=== PATIENT | female | born 1990 | race Caucasian/White ===

== ENCOUNTER 2017-03-25 15:22 | Inpatient (IN) | payer BC ==
--- NOTE | 2017-03-25 06:36 | PCM.LDHP ---
L&D History of Present Illness - General Date of Service: 03/25/17 Admit Problem/Dx: Admission Diagnosis/Problem Admission Diagnosis/Problem 03/25/17 06:27 40-1/7 week intrauterine , elective induction of labor Source of Information: Patient History Limitations: Reports: No Limitations - History of Present Illness Introduction:: Sarai is a 26-year-old 2 para 1001 white female is admitted for elective induction of labor on 03/25/2017. Her MARY is 03/24/2017 is based upon a certain lastwhich started on 06/17/2016 and is supported by 2 ultrasounds. First one done on 08/27/2016 at 9 weeks gestational age and the second one done on 11/04/2016. She is admitted for elective Pitocin/artificial rupture membranes induction. The procedure, risks, benefits, course of labor are discussed in detail the patient. She is interested in an epidural in labor. 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 Certain last menstrual start 06/17/2016. Her cycles are regular. They occur daily 28 days. Using no control at time conception. Menarche age 12. Patient's previous obstetric history includes a male born 02/05/2015 at 40-1/7 weeks gestational age after 12 hours of labor. Baby weighed 6 lbs. 14 oz. was delivered by spontaneous vaginal delivery. His name is Mando Kendall. course was relatively unremarkable. Her first visit occurred on 08/27/2016 at 10-1/7 weeks gestational age. Her weight gain was from 228 230 pounds. Vital signs are stable throughout the course. Fundal height growth was appropriate. Patient has had some asthma exacerbations during the . She declined genetic evaluation. Her [place] depression screening score on 10/21/2016 was 0. She is group B strep negative. 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 laboratory testing shows blood to be O+. Negative and by screen. Hemoglobin done on first visit was 14.0 g/dL. Platelets were 235,000. Her rubella titer shows immunity. RPR is nonreactive. Urine culture was unremarkable. Hepatitis B test was negative. Chlamydia and gonorrhea assays were both negative. Second trimester testing showed hemoglobin 13.6. Her platelets 197,000. Her 1 hour glucose times test was normal at 118. The strep screen is negative. Allergies: penicillin which causes hives and night sweats which causes anaphylaxis. Medications: 1. Montelukast sodium 10 mg orally daily 2. Flovent inhaler 2 puffs twice daily 3. Pro-air inhalation aerosol solution 2 puffs 4 times per day when necessary 4. vitamins daily 5. Colace 100 mg's twice a day when necessary for constipation Past medical history: Normal 70s vaginal delivery 2014 2. Asthma on medications 3. Eczema 4. 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 [place] teeth extraction 2009 2. Back surgery 2013 3. Tonsillectomy 2008 Family history: mother is alive and well. Father has hypertension. One brother is alive and well. Maternal grandmother mother with heart valve disease. Maternal grandfather with dementia and hypertension. Paternal grandfather secondary to pancreatic cancer. Paternal grandmother alive and well. No Precis, blood clotting, bleeding or anesthesia problems noted in the family. Social history: Patient is . is Riley Sewell. 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 She does not use any significant amounts alcohol, drugs or tobacco. They live in [place], [place] Review of systems: In general patient is doing well. Precis symptoms noted Skin: Negative Cardiovascular: No chest pain or exercise intolerance Respiratory: Asthma with exacerbation during on meds Breasts: Changes associated with GI: Negative : Changes associated with [place] skeletal: Negative Neurological: Negative Physical exam: In general patient is well developed, well-nourished, pleasant female stated age in no acute distress. Last evaluation clinic blood pressure was 115/58 on 03/15/2017. Weight was 230. Height growth was normal at 38. heart rate was 135. Skin is warm and dry without lesions. Lungs are clear with good breath sounds, but occasional wheezing in some lung [place]. Cardiovascular exam shows regular rate and rhythm. Breasts: Deferred having been done at first visit and normal. Abdomen: Fundal height 38 cm, baby vertex presentation. Paracervix: 2 cm/80% effaced/very soft/-3/midposition Extremities and neurological exam grossly within normal limits. - Related Data Allergies/Adverse Reactions: Allergies Allergy/AdvReac Type Severity Reaction Status Date / Time tree nut Allergy Severe Anaphylactic Verified 02/05/15 08:22 Shock amoxicillin [Amoxicillin] Allergy Hives Verified 08/18/15 08:22 Penicillins Allergy Hives Verified 02/05/15 08:22 Home Medications: Home Meds Albuterol [Ventolin HFA] 2 puff INH BID PRN 05/07/14 [History] Acyclovir [Zovirax] 800 mg PO 5XDAY 02/05/15 [History] Fluticasone Propionate [Flovent HFA 110 MCG] 1 - 2 inhaler INH ASDIRECTED [History] Montelukast [Singulair] 10 mg PO BEDTIME 02/05/15 [History] Vit No.130/Iron/FA [ Tablet] 1 tab PO DAILY 02/05/15 [History] Benzocaine/Menthol [Dermoplast Pain Relief [place]] 1 applic TOP ASDIRECTED PRN # 30 canister 02/07/15 [Rx] Docusate Sodium [Colace] 100 mg PO BID PRN #20 cap 02/07/15 [Rx] Ibuprofen [Motrin] 600 mg PO Q4H PRN #30 tablet 02/07/15 [Rx] Lanolin [Lansinoh HPA] 1 applic TOP ASDIRECTED PRN #30 crm 02/07/15 [Rx] Ermelinda Tiradoel [Tucks] 1 pad TOP ASDIRECTED PRN #30 pad 02/07/15 [Rx] Past Medical History - Past Surgical History Other Neurological Surgeries/Procedures: Pt states she had lower back surgery to "burn the nerves off her SI joint" in 2012 Social & Family History - Tobacco Use Smoking Status *Q: Never Smoker Second Hand Smoke Exposure: No - Alcohol Use Days Per Week of Alcohol Use: 0 - Recreational Drug Use Recreational Drug Use: No H&P Review of Systems - Review of Systems: Review Of Systems: See Below L&D Exam - Exam Exam: See Below - Vital Signs Weight: 98.43 kg Problem List Initiated/Reviewed/Updated: Yes Assessment/Plan Comment:: Assessment: 1. 40-1/7 week intrauterine , admitted for elective induction of labor 2. Group B strep screen negative 3. Patient plans to breast-feed 4. Patient desire an epidural in labor and delivery 5. Rh+ Plan: 1. Pitocin/artificial rupture membranes induction 2. Routine electronic monitoring 3. Epidural when necessary 4. Encouraged breast-feeding 5. Routine labor and delivery care.
[2017-03-26] MEDS ORDERED: Nalbuphine 20 MG/1 ML Amp IVPUSH PRN (06:54)
[2017-03-26] MEDS ORDERED: Sodium Chloride 0.9% 10 ML Syringe FLUSH PRN (06:54)
[2017-03-26] MEDS ORDERED: Ondansetron 4 MG/2 ML SDV IVPUSH PRN (06:54)
[2017-03-26] MEDS ORDERED: Lidocaine 1% 50 ML MDV INJECT ONE (06:54)
[2017-03-26] MEDS ORDERED: Oxytocin/Lactated Ringers 10 UNIT/1,000 ML BAG IV SCH ×2 (07:00)
[2017-03-26] MEDS ORDERED: ePHEDrine 50 MG/ML SDV IVPUSH PRN (07:29)
[2017-03-26] MEDS ORDERED: diphenhydrAMINE 50 MG/ML SDV IVPUSH PRN (07:29)
[2017-03-26] MEDS ORDERED: Bupivacaine/fentaNYL/NS 100 ML Bag EPIDUR SCH (07:30)
[2017-03-26] MEDS ORDERED: fentaNYL 100 MCG/2 ML SDV EPIDUR ONE (08:00)
[2017-03-26] MEDS: Lactated Ringers 1,000 ML IV SCH ×3 (08:17→12:45)
--- NOTE | 2017-03-26 09:53 | PCM.PREANE ---
Preanesthetic Assessment - Anesthesia/Transfusion/Family Hx Anesthesia History: Prior Anesthesia Without Reaction Family History of Anesthesia Reaction: No Transfusion History: No Prior Transfusion(s) Type of Transfusion Reactions: Reports: Unknown Intubation History: Unknown - Review of Systems General: No Symptoms Pulmonary: No Symptoms (Asthma. Has not used her inhaler for about a month. ) Cardiovascular: No Symptoms Gastrointestinal: No Symptoms Neurological: No Symptoms Other: Reports: None - Physical Assessment O2 Sat by Pulse Oximetry: 98 Respiratory Rate: 18 Vital Signs: Last Vital Signs Temp 36.6 C 03/26/17 07:15 Pulse 71 03/26/17 07:15 Resp 18 03/26/17 07:15 BP 121/70 03/26/17 07:15 Pulse Ox 98 03/26/17 07:15 Height: 1.69 m Weight: 104.78 kg ASA Class: 2 Mental Status: Alert & Oriented x3 Airway Class: Mallampati = 1 Dentition: Reports: Normal Dentition Thyro-Mental Finger Breadths: 3 Mouth Opening Finger Breadths: 3 ROM/Head Extension: Full Lungs: Clear to Auscultation, Normal Respiratory Effort Cardiovascular: Regular Rate, Regular Rhythm - Lab Values: Laboratory Last Values WBC 9.37 K/mm3 (3.98-10.04) 03/26/17 07:25 RBC 4.58 M/mm3 (3.98-5.22) 03/26/17 07:25 Hgb 14.0 gm/L (11.2-15.7) 03/26/17 07:25 Hct 40.9 % (34.1-44.9) 03/26/17 07:25 MCV 89.3 fl (79.4-94.8) 03/26/17 07:25 MCH 30.6 pg (25.6-32.2) 03/26/17 07:25 MCHC 34.2 g/dl (32.2-35.5) 03/26/17 07:25 RDW Std Deviation 43.1 fL (36.4-46.3) 03/26/17 07:25 Plt Count 153 K/mm3 (182-369) L 03/26/17 07:25 MPV 11.8 fl (9.4-12.3) 03/26/17 07:25 Neut % (Auto) 57.6 % (34.0-71.1) 03/26/17 07:25 Lymph % (Auto) 34.2 % (19.3-51.7) 03/26/17 07:25 [place] % (Auto) 5.7 % (4.7-12.5) 03/26/17 07:25 Eos % (Auto) 2.0 (0.7-5.8) 03/26/17 07:25 Baso % (Auto) 0.3 % (0.1-1.2) 03/26/17 07:25 Neut # (Auto) 5.40 K/mm3 (1.56-6.13) 03/26/17 07:25 Lymph # (Auto) 3.20 K/mm3 (1.18-3.74) 03/26/17 07:25 [place] # (Auto) 0.53 K/mm3 (0.24-0.36) H 03/26/17 07:25 Eos # (Auto) 0.19 K/mm3 (0.04-0.36) 03/26/17 07:25 Baso # (Auto) 0.03 K/mm3 (0.01-0.08) 03/26/17 07:25 - Allergies Allergies/Adverse Reactions: Allergies Allergy/AdvReac Type Severity Reaction Status Date / Time tree nut Allergy Severe Anaphylactic Verified 02/05/15 08:22 Shock amoxicillin [Amoxicillin] Allergy Hives Verified 02/05/15 08:22 Penicillins Allergy Hives Verified 02/05/15 08:22 - Acknowledgements Anesthesia Type Planned: Epidural Pt an Appropriate Candidate for the Planned Anesthesia: Yes Alternatives and Risks of Anesthesia Discussed w Pt/Guardian: Yes Pt/Guardian Understands and Agrees with Anesthesia Plan: Yes PreAnesthesia Questionnaire 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 - SUBSTANCE USE Smoking Status *Q: Never Smoker Second Hand Smoke Exposure: No Days Per Week of Alcohol Use: 0 Recreational Drug Use History: No - HOME MEDS Home Medications: Home Meds Albuterol [Ventolin HFA] 2 puff INH BID PRN 05/07/14 [History] Acyclovir [Zovirax] 800 mg PO 5XDAY 02/05/15 [History] Fluticasone Propionate [Flovent HFA 110 MCG] 1 - 2 inhaler INH ASDIRECTED [History] Montelukast [Singulair] 10 mg PO BEDTIME 02/05/15 [History] Vit No.130/Iron/FA [ Tablet] 1 tab PO DAILY 02/05/15 [History] Benzocaine/Menthol [Dermoplast Pain Relief [place]] 1 applic TOP ASDIRECTED PRN # 30 canister 02/07/15 [Rx] Docusate Sodium [Colace] 100 mg PO BID PRN #20 cap 02/07/15 [Rx] Ibuprofen [Motrin] 600 mg PO Q4H PRN #30 tablet 02/07/15 [Rx] Lanolin [Lansinoh HPA] 1 applic TOP ASDIRECTED PRN #30 crm 02/07/15 [Rx] Witch Domitila [Tucks] 1 pad TOP ASDIRECTED PRN #30 pad 02/07/15 [Rx] - CURRENT (IN HOUSE) MEDS Current Meds: Current Medications Diphenhydramine HCl (Benadryl) 25 mg IVPUSH Q6H PRN PRN Reason: Pruritis Ephedrine Sulfate (Ephedrine Sulfate) 5 mg IVPUSH ASDIRECTED PRN PRN Reason: Hypotension Fentanyl/Bupivacaine HCl (Fentanyl/Bupivacaine/Ns 2 Mcg-0.125% 100 Ml) 100 ml EPIDUR ASDIRECTED SARATH Lactated Ringer's (Ringers, Lactated) 1,000 mls @ 100 mls/hr IV ASDIRECTED SARATH Last Admin: 03/26/17 08:17 Dose: 100 mls/hr Oxytocin/Lactated Ringer's (Pitocin In Lr 10 Units/1,000 Ml) 10 unit in 1,000 mls @ 12 mls/hr IV TITRATE SARATH; 2 MUNITS/MIN PRN Reason: Protocol Last Admin: 03/26/17 08:16 Dose: 2 munits/min, 12 mls/hr Oxytocin/Lactated Ringer's (Pitocin In Lr 10 Units/1,000 Ml) 10 unit in 1,000 mls @ 100 mls/hr IV .CONTINUOUS SARATH Nalbuphine HCl (Nubain) 10 mg IVPUSH Q2H PRN PRN Reason: Pain (moderate 4-6) Ondansetron HCl (Zofran) 4 mg IVPUSH Q4H PRN PRN Reason: Nausea/Vomiting Sodium Chloride (Saline Flush) 10 ml FLUSH ASDIRECTED PRN PRN Reason: Keep Vein Open Discontinued Medications Fentanyl (Sublimaze) 100 mcg EPIDUR ONETIME ONE Stop: 03/26/17 08:01 Lidocaine HCl (Xylocaine 1%) 10 ml INJECT ONETIME ONE Stop: 03/26/17 06:55
[2017-03-26] MEDS ORDERED: fentaNYL 100 MCG/2 ML SDV ONE (11:26)
--- NOTE | 2017-03-26 16:33 | PCM.SN ---
- Free Text/Narrative Note: Delivery note: Sarai is a 26 year old 2 now para 2002 white female who was admitted on 03/26/2017 at 40-2/7 weeks gestational age with an MARY of 03/24/2017 for elective induction of labor. The patient was 2 cm, 80% effaced, very soft, posterior, -3 upon admission. She is administered Pitocin initially and then had artificial rupture membranes at approximately late morning. She progressed to complete cervical dilation by approximately 1600 hrs. She pushed approximately 15 minutes at which time she delivered a viable, [place], 7 pound 4.4 ounces (3300 g) male infant with a length of 20 inches, Apgars of 8 and 9 in a left occiput anterior position. Baby was placed on mom's abdomen. The cord was clamped 2 and and then was cut by the father. Cord blood was obtained. The patient was administered Pitocin IV after delivery of the baby to facilitate uterine contractions and decreased likelihood of bleeding. Umbilical cord had 3 vessels, delivered in a spontaneous fashion, [place] presentation. It appeared intact and complete. It was discarded per patient desire. Patient had a first-degree laceration and this was repaired with 2 interrupted sutures of 3-0 Monocryl. Estimated blood loss was 100 mL. Patient is nursing the baby. Condition: Good
[2017-03-26] MEDS ORDERED: Benzocaine/Menthol 20%-0.5% Spray 56 GM Canister TOP PRN (17:38)
[2017-03-26] MEDS ORDERED: Witch Hazel Medicated Pads 100/Jar TOP PRN (17:38)
[2017-03-26] MEDS ORDERED: Lanolin 100% Cream 7 GM Tube TOP PRN (17:38)
[2017-03-26] MEDS ORDERED: Acetaminophen 325 MG Tab PO PRN (17:38)
[2017-03-27] MEDS: Ibuprofen 600 MG Tab PO PRN ×2 (06:05→12:28)
--- NOTE | 2017-03-27 07:12 | PCM.PNPP ---
- General Info Date of Service: 03/27/17 Functional Status: Reports: Pain Controlled, Tolerating Diet, Ambulating, Urinating - Review of Systems General: Reports: No Symptoms Pulmonary: Reports: No Symptoms Cardiovascular: Reports: No Symptoms Gastrointestinal: Reports: No Symptoms Genitourinary: Reports: No Symptoms Musculoskeletal: Reports: No Symptoms - Patient Data Vital Signs - Most Recent: Last Vital Signs Temp 36.6 C 03/27/17 06:08 Pulse 76 03/27/17 06:08 Resp 14 03/27/17 06:08 BP 114/64 03/27/17 06:08 Pulse Ox 96 03/27/17 06:08 Weight - Most Recent: 104.78 kg Lab Results - Last 24 Hours: Laboratory Results - last 24 hr 03/26/17 Range/Units 07:25 WBC 9.37 (3.98-10.04) K/mm3 RBC 4.58 (3.98-5.22) M/mm3 Hgb 14.0 (11.2-15.7) gm/L Hct 40.9 (34.1-44.9) % MCV 89.3 (79.4-94.8) fl MCH 30.6 (25.6-32.2) pg MCHC 34.2 (32.2-35.5) g/dl RDW Std Deviation 43.1 (36.4-46.3) fL Plt Count 153 L (182-369) K/mm3 MPV 11.8 (9.4-12.3) fl Neut % (Auto) 57.6 (34.0-71.1) % Lymph % (Auto) 34.2 (19.3-51.7) % [place] % (Auto) 5.7 (4.7-12.5) % Eos % (Auto) 2.0 (0.7-5.8) Baso % (Auto) 0.3 (0.1-1.2) % Neut # (Auto) 5.40 (1.56-6.13) K/mm3 Lymph # (Auto) 3.20 (1.18-3.74) K/mm3 [place] # (Auto) 0.53 H (0.24-0.36) K/mm3 Eos # (Auto) 0.19 (0.04-0.36) K/mm3 Baso # (Auto) 0.03 (0.01-0.08) K/mm3 Med Orders - Current: Current Medications Acetaminophen (Tylenol) 650 mg PO Q4H PRN PRN Reason: mild pain or fever Benzocaine/Menthol (Dermoplast Pain Relief [place]) 0 gm TOP ASDIRECTED PRN PRN Reason: Perineal Comfort Measure Last Admin: 03/26/17 18:30 Dose: 1 canister Emollient Ointment (Lansinoh Hpa) 0 gm TOP ASDIRECTED PRN PRN Reason: Sore Nipples Last Admin: 03/27/17 06:06 Dose: 1 tube Ibuprofen (Motrin) 600 mg PO Q4H PRN PRN Reason: Mild pain or fever Last Admin: 03/27/17 06:05 Dose: 600 mg Prenat Multivit/Clinical Informatics Manager/Iron/Folic Ac ( Plus Iron) 1 each PO DAILY SARATH Witch Domitila (Tucks) 1 pad TOP ASDIRECTED PRN PRN Reason: Hemorrhoid pain Last Admin: 03/26/17 18:30 Dose: 1 container Discontinued Medications Diphenhydramine HCl (Benadryl) 25 mg IVPUSH Q6H PRN PRN Reason: Pruritis Ephedrine Sulfate (Ephedrine Sulfate) 5 mg IVPUSH ASDIRECTED PRN PRN Reason: Hypotension Fentanyl (Sublimaze) 100 mcg EPIDUR ONETIME ONE Stop: 03/26/17 08:01 Last Admin: 03/26/17 11:54 Dose: 100 mcg Fentanyl (Sublimaze) Confirm Administered Dose 100 mcg .ROUTE .STK-MED ONE Stop: 03/26/17 11:27 Last Admin: 03/26/17 21:36 Dose: Not Given Fentanyl/Bupivacaine HCl (Fentanyl/Bupivacaine/Ns 2 Mcg-0.125% 100 Ml) 100 ml EPIDUR ASDIRECTED SARATH Last Admin: 03/26/17 11:54 Dose: 100 ml Lactated Ringer's (Ringers, Lactated) 1,000 mls @ 100 mls/hr IV ASDIRECTED SARATH Last Admin: 03/26/17 12:45 Dose: 100 mls/hr Oxytocin/Lactated Ringer's (Pitocin In Lr 10 Units/1,000 Ml) 10 unit in 1,000 mls @ 12 mls/hr IV TITRATE SARATH; 2 MUNITS/MIN PRN Reason: Protocol Last Titration: 03/26/17 10:30 Dose: 12 munits/min, 72 mls/hr Oxytocin/Lactated Ringer's (Pitocin In Lr 10 Units/1,000 Ml) 10 unit in 1,000 mls @ 100 mls/hr IV .CONTINUOUS SARATH Lidocaine HCl (Xylocaine 1%) 10 ml INJECT ONETIME ONE Stop: 03/26/17 06:55 Last Admin: 03/26/17 21:33 Dose: Not Given Nalbuphine HCl (Nubain) 10 mg IVPUSH Q2H PRN PRN Reason: Pain (moderate 4-6) Ondansetron HCl (Zofran) 4 mg IVPUSH Q4H PRN PRN Reason: Nausea/Vomiting Sodium Chloride (Saline Flush) 10 ml FLUSH ASDIRECTED PRN PRN Reason: Keep Vein Open - Interaction Infant Disposition, : in Room with Family Interaction: Holding Infant Infant Feeding: Breastfed Infant; Nursed Well Support Person: - Recovery Exam Fundal Tone: Firm Fundal Level: At Umbilicus Fundal Placement: Midline Lochia Amount: Small, Moderate Lochia Color: Rubra/Red Perineum Description: Intact, Minimal Bruising/Swelling Episiotomy/Laceration: Approximated Bladder Status: Voiding - Exam General: Alert, Oriented, Cooperative GI/Abdominal Exam: Soft, Non-Tender Extremities: Normal Inspection Skin: Warm, Dry, Intact - Problem List & Annotations (1) 40 weeks gestation of SNOMED Code(s): 37584941 Code(s): Z3A.40 - 40 WEEKS GESTATION OF Status: Acute Current Visit: Yes (2) Vaginal delivery SNOMED Code(s): 521434692 Code(s): O80 - ENCOUNTER FOR FULL-TERM UNCOMPLICATED DELIVERY Status: Acute Current Visit: Yes - Problem List Review Problem List Initiated/Reviewed/Updated: Yes - My Orders Last 24 Hours: My Active Orders 03/27/17 07:11 Ready for Discharge [RC] PER UNIT ROUTINE - Assessment Assessment:: 26 y/o G2 now P2002 PPD#1 from at 40 1/7 wks - Plan Plan:: * Routine cares * Encourage breast feeding * Discharge home today vs tomorrow depending upon patient preference
[2017-03-27] MEDS ORDERED: Prenatal Multivitamin with Calcium/Folic Acid/Iron Tab PO SCH (09:00)
[2017-03-27] MEDS ORDERED: Montelukast 10 MG Tab PO SCH (09:45)
[2017-03-27 13:25] VITALS: BP 117/70
--- NOTE | 2017-03-28 13:41 | PCM48HPAN ---
Post Anesthesia Note - EVALUATION WITHIN 48HRS OF ANESTHETIC Vital Signs in Normal Range: Yes Patient Participated in Evaluation: Yes Respiratory Function Stable: Yes Airway Patent: Yes Cardiovascular Function Stable: Yes Hydration Status Stable: Yes Pain Control Satisfactory: Yes Nausea and Vomiting Control Satisfactory: Yes Mental Status Recovered: Yes - COMMENTS/OBSERVATIONS Free Text/Narrative:: Patient discharged home. Chart reviewed and spoke with nursing staff. No apparent complications noted related to epidural placement.
== END 2017-03-27 17:20 | disposition home or self-care (01) | DRG 560 ==
LOC: JD.OB 03-26 06:50 → OBSVTOIN 03-26 16:26
PROVIDERS: ADMIT Obstetrics & Gynecology; ATTEND Obstetrics & Gynecology
PROC: 10E0XZZ Delivery of Products of Conception, External Approach (ICD-10-PCS; principal; 2017-03-26)
PROC: 3E033VJ Introduction of Other Hormone into Peripheral Vein, Percutaneous Approach (ICD-10-PCS; 2017-03-26)
PROC: 10907ZC Drainage of Amniotic Fluid, Therapeutic from Products of Conception, Via Natural or Artificial Opening (ICD-10-PCS; 2017-03-26)
PROC: 0HQ9XZZ Repair Perineum Skin, External Approach (ICD-10-PCS; 2017-03-26)
PROC: 00HU33Z Insertion of Infusion Device into Spinal Canal, Percutaneous Approach (ICD-10-PCS; 2017-03-26)
PROC: 3E0R3BZ Introduction of Anesthetic Agent into Spinal Canal, Percutaneous Approach (ICD-10-PCS; 2017-03-26)
DX: O70.0 First degree perineal laceration during delivery (principal); Z3A.40 40 weeks gestation of pregnancy; Z37.0 Single live birth
CPT/HCPCS: 36415; 59409; 85025; 85027; A9270-GY; J2590; J3010; J7120

== ENCOUNTER 2019-10-14 01:27 | Inpatient (IN) | payer OTHER ==
--- NOTE | 2019-10-14 11:01 | PCM.LDHP ---
L&D History of Present Illness - General Date of Service: 10/14/19 Admit Problem/Dx: Admission Diagnosis/Problem Admission Diagnosis/Problem 10/14/19 10:47 Sarai is a 29-year-old 3 para 2002 white female who is presently at 39 -2/7 weeks gestational age with an MARY of 10/19/2019 who was admitted for elective induction of labor for the reason of Her status and increased distance from the hospital. Source of Information: Patient History Limitations: Reports: No Limitations - History of Present Illness Introduction:: Sarai is a 29-year-old 3 para 2002 white female who is presently at 39 -2/7 weeks gestational age with an MARY of 10/19/2019 who was admitted for elective induction of labor for the reason of multiparous status and increased distance from the hospital. The procedure of induction of labor, its risks, benefits and alternatives of care including allowing for natural onset of labor are all discussed with patient and her . She appears to understand, wishes to proceed and has given verbal consent. 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 Patient has a relatively unremarkable obstetric history. She had normal menarche at approximately age 13. Her cycles come on a regular basis. She was not using any control at the time of conception. Her LMP was certain starting on 01/12/2019. Her past obstetric history includes the followin. Male born 02/05/2015 at 40-1/7 weeks gestational age after 12 hours of labor. 6 lbs. 14 oz. born via normal . Patient had an epidural with that labor. Baby was born at [facility]. Child's name is Joe Kendall. 2. Male born 03/26/2017 at 40-2/7 weeks gestational age. 7 lbs. 4 oz. born via 3-D with epidural for analgesia at [facility] in [place]. Child's name is Severiano course: Patient was seen initially early in the at 10-4/7 weeks gestational age ultrasound at that time confirmed dates. She was seen on a very regular basis. Her weight relatively constant with an actual loss of weight of from 224 to 220 pounds. Fundal height growth was appropriate. Her vital signs remained stable throughout the course. Patient desires an epidural in labor and delivery. Her group B strep screen is negative. She has had some asthma which has been stable during the course the . Her [place] depression screen done on 05/24/2019 was a score is 0/30. She had her flu shot on 04/14/2019. She plans to breast-feed. Tdap immunization on 08/14/2019. She is rubella immune. Her HPV vaccinations given 2007. Hepatitis B immunization given in 2003. Meningococcal immunization given in 2006. Laboratory testing and shows her blood to be O+ with negative and by screen. First hemoglobin was 14.1 g/dL. Platelets were 197,000. She is rubella immune. Urine culture was negative. Hepatitis B surface antigen and HIV assays were both negative. Gonorrhea and chlamydia tests were both negative. Second trimester hemoglobin was 13.5 g/dL and platelets were 224,000. Her 1 hour GTT was 73. Group B strep screen is negative. RPR done on 07/17/2019 was non -reactive area Allergies: 1. Penicillin which causes hives. 2. Nutswhich cause anaphylaxis. Medications: 1. Montelukast sodium 10 mg by mouth daily 2. HFA inhaler 2 puffs 4 times a day when necessary for asthma 3. Zyrtec 10 mg by mouth daily 4. Flonase suspension when necessary 5. vitamins daily Past medical history: 1. Asthma 2. 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 2. Past surgical history: 1. [place] teeth extraction 2009 2. Back surgery 2013 3. Tonsillectomy 2008 Family history: Mother is alive and well. Father has hypertension. One brother is alive and well. Maternal grandmother is alive but has heart valve disease. Maternal grandfather with dementia and hypertension. Paternal grandfather secondary to pancreatic cancer. Paternal grandmother alive and well. There are no , clotting, bleeding, anesthesia problems noted elsewhere in the family. Social history: Patient is . She now lives in [place]. She is not employed at the present time. She is a college graduate. Her is Riley. She does not use any significant most alcohol, drugs or tobacco. Review of systems: In general patient has no complaints. Skin: Negative Lungs: No infectious symptoms or shortness of breath area. Her asthma has been relatively stable during . Cardiovascular: No chest pain or exercise intolerance Breasts: Changes associated with . Patient plans to breast-feed.. GI: Negative : Body habitus changes associated . Musculoskeletal: Negative Neurological: Negative In general the patient is well-developed, well-nourished, pleasant female of stated age in no acute distress. Reports good activity. Evaluation in clinic on 10/05/2019 her blood pressure is 110/72. Weight was 220 pounds. heart rate was 154. Pre-gravid weight was 224. Height is 5 feet 6 inches. Prepregnancy body mass index was 5.6. Skin is warm dry without lesions. HEENT, neck and back within normal limits. Lungs are clear with good breath sounds in all lung [place]. Cardiovascular exam shows regular and rhythm without murmurs. Breast exam is deferred at this time having been done at first visit and found to be normal it is not repeated at this point. Abdomen is gravid. Last fundal height in clinic was 37 cm with baby in vertex presentation. Genital exam per digital on last evaluation in clinic1-2 cm, 80% effaced, very soft, mid position, -3 station.. Extremities and neurological exam are grossly within normal limits. - Related Data Allergies/Adverse Reactions: Allergies Allergy/AdvReac Type Severity Reaction Status Date / Time tree nut Allergy Severe Anaphylactic Verified 02/05/15 08:22 Shock amoxicillin [Amoxicillin] Allergy Hives Verified 02/05/15 08:22 Penicillins Allergy Hives Verified 02/05/15 08:22 Home Medications: Home Meds Ibuprofen [IJD: Ibuprofen] 600 mg PO Q4H PRN tablet 03/26/17 [Rx] Pnv No.95/Ferrous Fum/Folic AC [ Vitamins Tablet] 1 tab PO DAILY [History] Past Medical History SEISMIC SURVEY ASSISTANT History: Reports: - Past Surgical History Other Neurological Surgeries/Procedures: Pt states she had lower back surgery to "burn the nerves off her SI joint" in 2012 Other Musculoskeletal Surgeries/Procedures:: Pt had previous back surgery. Social & Family History - Family History Family Medical History: Noncontributory H&P Review of Systems - Review of Systems: Review Of Systems: See Below L&D Exam - Exam Exam: See Below Problem List Initiated/Reviewed/Updated: Yes Assessment/Plan Comment:: 1. 39-2/7 week intrauterine admitted for elective induction of labor secondary to multiparous status with increased distance from the pill. 2. Risk factors for the include history of asthma, from hospital. 3. Patient desires epidural in labor and delivery 4. Patient plans to breast-feed 5. Group B strep screen is negative. 6. Patient is rubella immune. RPR is nonreactive. She has received her flu shot and her T dap during the course of the . Plan: 1. Pitocin induction of labor with artificial rupture membranes augmentation at the appropriate time. 2. RPR and CBC upon admission 3. Routine labor care 4. Epidural when necessary per patient desire. 5. Anticipate normal spontaneous vaginal delivery.
[2019-10-14] MEDS ORDERED: Ondansetron 4 MG/2 ML SDV IVPUSH PRN (13:09)
[2019-10-14] MEDS ORDERED: Sodium Chloride 0.9% 10 ML Syringe FLUSH PRN (13:09)
[2019-10-14] MEDS ORDERED: Nalbuphine 10 MG/ML Syringe IVPUSH PRN (13:09)
[2019-10-14] MEDS ORDERED: Oxytocin/Lactated Ringers 10 UNIT/1,000 ML BAG IV SCH ×2 (13:15)
[2019-10-14] MEDS: Lactated Ringers 1,000 ML IV SCH ×4 (13:36→23:56)
[2019-10-14] MEDS ORDERED: fentaNYL 100 MCG/2 ML SDV EPIDUR PRN (13:55)
[2019-10-14] MEDS ORDERED: ePHEDrine 50 MG/ML SDV IVPUSH PRN (13:55)
[2019-10-14] MEDS ORDERED: diphenhydrAMINE 50 MG/ML SDV IVPUSH PRN (13:55)
--- NOTE | 2019-10-14 14:02 | PCM.PREANE ---
Preanesthetic Assessment - Procedure Proposed Procedure: Continuous Labor Epidural - Anesthesia/Transfusion/Family Hx Anesthesia History: Prior Anesthesia Without Reaction Transfusion History: No Prior Transfusion(s) Type of Transfusion Reactions: Reports: Unknown Intubation History: Unknown - Review of Systems General: No Symptoms Pulmonary: No Symptoms Cardiovascular: No Symptoms Gastrointestinal: No Symptoms Neurological: No Symptoms Other: Reports: None - Physical Assessment Height: 1.7 m Weight: 102.512 kg ASA Class: 2 Mental Status: Alert & Oriented x3 Airway Class: Mallampati = 2 Dentition: Reports: Normal Dentition Thyro-Mental Finger Breadths: 3 Mouth Opening Finger Breadths: 3 ROM/Head Extension: Full Lungs: Clear to Auscultation, Normal Respiratory Effort Cardiovascular: Regular Rate, Regular Rhythm - Lab Values: Laboratory Last Values WBC 9.21 K/mm3 (3.98-10.04) 10/14/19 13:23 RBC 4.32 M/mm3 (3.98-5.22) 10/14/19 13:23 Hgb 12.9 gm/dl (11.2-15.7) 10/14/19 13:23 Hct 39.0 % (34.1-44.9) 10/14/19 13:23 MCV 90.3 fl (79.4-94.8) 10/14/19 13:23 MCH 29.9 pg (25.6-32.2) 10/14/19 13:23 MCHC 33.1 g/dl (32.2-35.5) 10/14/19 13:23 RDW Std Deviation 44.4 fL (36.4-46.3) 10/14/19 13:23 Plt Count 179 K/mm3 (182-369) L 10/14/19 13:23 MPV 11.2 fl (9.4-12.3) 10/14/19 13:23 Neut % (Auto) 62.3 % (34.0-71.1) 10/14/19 13:23 Lymph % (Auto) 30.8 % (19.3-51.7) 10/14/19 13:23 [place] % (Auto) 5.9 % (4.7-12.5) 10/14/19 13:23 Eos % (Auto) 0.7 (0.7-5.8) 10/14/19 13:23 Baso % (Auto) 0.2 % (0.1-1.2) 10/14/19 13:23 Neut # (Auto) 5.74 K/mm3 (1.56-6.13) 10/14/19 13:23 Lymph # (Auto) 2.84 K/mm3 (1.18-3.74) 10/14/19 13:23 [place] # (Auto) 0.54 K/mm3 (0.24-0.36) H 10/14/19 13:23 Eos # (Auto) 0.06 K/mm3 (0.04-0.36) 10/14/19 13:23 Baso # (Auto) 0.02 K/mm3 (0.01-0.08) 10/14/19 13:23 - Allergies Allergies/Adverse Reactions: Allergies Allergy/AdvReac Type Severity Reaction Status Date / Time tree nut Allergy Severe Anaphylactic Verified 02/05/15 08:22 Shock amoxicillin [Amoxicillin] Allergy Hives Verified 02/05/15 08:22 Penicillins Allergy Hives Verified 02/05/15 08:22 - Acknowledgements Anesthesia Type Planned: Epidural Pt an Appropriate Candidate for the Planned Anesthesia: Yes Alternatives and Risks of Anesthesia Discussed w Pt/Guardian: Yes Pt/Guardian Understands and Agrees with Anesthesia Plan: Yes PreAnesthesia Questionnaire Respiratory History: Reports: Asthma (uses Singulair) 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 - HOME MEDS Home Medications: Home Meds Ibuprofen [IJD: Ibuprofen] 600 mg PO Q4H PRN tablet 03/26/17 [Rx] Pnv No.95/Ferrous Fum/Folic AC [ Vitamins Tablet] 1 tab PO DAILY [History] - CURRENT (IN HOUSE) MEDS Current Meds: Current Medications Diphenhydramine HCl (Benadryl) 25 mg IVPUSH Q6H PRN PRN Reason: pruritis Ephedrine Sulfate (Ephedrine Sulfate) 5 mg IVPUSH ASDIRECTED PRN PRN Reason: Hypotension Fentanyl (Sublimaze) 100 mcg EPIDUR Q3H PRN PRN Reason: Pain Fentanyl/Bupivacaine HCl (Fentanyl/Bupivacaine/Ns 2 Mcg-0.125% 100 Ml) 100 ml EPIDUR ASDIRECTED PRN PRN Reason: Pain Lactated Ringer's (Ringers, Lactated) 1,000 mls @ 100 mls/hr IV ASDIRECTED [facility] Last Admin: 10/14/19 13:36 Dose: 100 mls/hr Oxytocin/Lactated Ringer's (Pitocin In Lr 10 Units/1,000 Ml) 10 unit in 1,000 mls @ 12 mls/hr IV TITRATE SARATH; Protocol Last Admin: 10/14/19 13:36 Dose: 2 munits/min, 12 mls/hr Oxytocin/Lactated Ringer's (Pitocin In Lr 10 Units/1,000 Ml) 10 unit in 1,000 mls @ 3,000 mls/hr IV ASDIRECTED SARATH; Protocol Nalbuphine HCl (Nubain) 10 mg IVPUSH Q2H PRN PRN Reason: Pain Ondansetron HCl (Zofran) 4 mg IVPUSH Q4H PRN PRN Reason: Nausea/Vomiting Sodium Chloride (Saline Flush) 10 ml FLUSH ASDIRECTED PRN PRN Reason: Keep Vein Open
[2019-10-14] MEDS: Bupivacaine/fentaNYL/NS 100 ML Bag EPIDUR PRN ×2 (16:16→23:55)
[2019-10-15] MEDS ORDERED: Lidocaine 2% with EPINEPHrine 1:200,000 20 ML SDV ONE
[2019-10-15] MEDS ORDERED: Albuterol 6.7 GM Inhaler INH PRN (01:45)
--- NOTE | 2019-10-15 01:52 | PCM.SN.2 ---
- Free Text/Narrative Note: Delivery note: Sarai is a 29-year-old 3 para 2002 white female who is presently at 39 -2/7 weeks gestational age with an MARY of 10/19/2019 who was admitted for elective induction of labor for the reason of multiparous status and increased distance from the hospital. She was started on Pitocin in the early afternoon on 10/14/2019. She made slow but steady progress, and epidural was placed for labor analgesia and at approximately 2030 hrs. artificial rupture membranes was accomplished with resultant clear amniotic fluid. IUPC was placed. Pitocin was modified as necessary. She progressed more rapidly and at approximately 0100 hrs. on 10/15/2019 she became complete and within approximately 25 minutes at 0127 hrs. delivered a viable, [place], male infant with Apgars of 8 and 9, weight of 2850 g (6 pounds 4.5 ounces), a length of 19.5 inches in a direct occiput anterior position over an intact perineum. The baby was placed on mom's abdomen, nose and mouth were bulb suctioned. The baby was dried and repeat routine fashion. The umbilical cord was allowed to pulsate for approximately 2 minutes then was clamped 2 and cut by the baby's dad Riley. The umbilical cord had 3 vessels. Cord blood was obtained. The placenta delivered at 0133 hrs. in a [place] presentation, appeared intact and complete and was discarded per patient desire. A Assessment blood loss was approximately 200 mL. Patient plans to breast-feed.
[2019-10-15] MEDS ORDERED: Benzocaine/Menthol 20%-0.5% Spray 56 GM Canister TOP PRN (01:55)
[2019-10-15] MEDS ORDERED: Witch Hazel Medicated Pads 40/Jar TOP PRN (01:55)
[2019-10-15] MEDS ORDERED: Docusate Sodium 100 MG Cap PO PRN (01:55)
[2019-10-15] MEDS ORDERED: Acetaminophen 325 MG Tab PO PRN (01:55)
[2019-10-15] MEDS: Ibuprofen 600 MG Tab PO PRN ×4 (06:57→21:52)
[2019-10-15] MEDS ORDERED: Montelukast 10 MG Tab PO SCH (09:00)
[2019-10-15] MEDS: Prenatal Multivitamin with Calcium/Folic Acid/Iron Tab PO SCH (13:42)
--- NOTE | 2019-10-15 14:48 | PCM48HPAN ---
Post Anesthesia Note - EVALUATION WITHIN 48HRS OF ANESTHETIC Vital Signs in Normal Range: Yes Patient Participated in Evaluation: Yes Respiratory Function Stable: Yes Airway Patent: Yes Cardiovascular Function Stable: Yes Hydration Status Stable: Yes Pain Control Satisfactory: Yes Nausea and Vomiting Control Satisfactory: Yes Mental Status Recovered: Yes Vital Signs: Last Vital Signs Temp 98.2 F 10/15/19 07:49 Pulse 71 10/15/19 07:49 Resp 14 10/15/19 07:49 BP 104/62 10/15/19 07:49 Pulse Ox 98 10/15/19 07:49 - COMMENTS/OBSERVATIONS Free Text/Narrative:: Patient is on her day 1. Stated understanding about possible backaches following epidural anesthesia. Reports no back soreness at this time. Explanation given about importance of avoiding back straining. Denies any headache or lightheadedness at this time. Comfortable now. Ambulating, no difficulty urinating.
--- NOTE | 2019-10-15 21:04 | PCM.SN.2 ---
- Free Text/Narrative Note: note: Day of delivery-evening Patient is doing well in the period. Minimal lochia, voiding well, ambulated without problems. Nursing without concerns. Patient is afebrile, vital signs are stable Abdomen is flat, soft, patient reports no tenderness. Legs are nontender. Assessment: recovery going well. Plan: Routine care. Patient be discharged home within the next 24- 48 hours.
[2019-10-16] MEDS: Ibuprofen 600 MG Tab PO PRN ×2 (03:45→09:56)
--- NOTE | 2019-10-16 05:04 | PCM.DCSUM1 ---
Discharge Summary - Hospital Course Free Text/Narrative:: Sarai is a 29-year-old 3 para 2002 white female who is presently at 39 -2/7 weeks gestational age with an MARY of 10/19/2019 who was admitted for elective induction of labor for the reason of multiparous status and increased distance from the hospital. She was started on Pitocin in the early afternoon on 10/14/2019. She made slow but steady progress, and epidural was placed for labor analgesia and at approximately 2030 hrs. artificial rupture membranes was accomplished with resultant clear amniotic fluid. IUPC was placed. Pitocin was modified as necessary. She progressed more rapidly and at approximately 0100 hrs. on 10/15/2019 she became complete and within approximately 25 minutes at 0127 hrs. delivered a viable, [place], male with Apgars of 8 and 9, weight of 2850 g (6 pounds 4.5 ounces), a length of 19.5 inches in a direct occiput anterior position over an intact perineum. The baby was placed on mom's abdomen, nose and mouth were bulb suctioned. The baby was dried and repeat routine fashion. The umbilical cord was allowed to pulsate for approximately 2 minutes then was clamped 2 and cut by the baby's dad Riley. The umbilical cord had 3 vessels. Cord blood was obtained. The placenta delivered at 0133 hrs. in a Pinedo presentation, appeared intact and complete and was discarded per patient desire. A Approximately blood loss was approximately 200 mL. patient is doing well. She is ambulating well, breast-feeding without problems. She is voiding without concerns and has minimal lochia. She is desiring discharge home. Diagnosis: Stroke: No - Discharge Data Discharge Date: 10/16/19 Discharge Disposition: Home, Self-Care 01 Condition: Good - Referral to Home Health Primary Care Physician: Dennis Leslie MD - Patient Instructions Diet: Regular Diet as Tolerated (Nursing diet with increased calories and calcium as recommended) Activity: As Tolerated (No intercourse or tampons until bleeding resolves) Driving: May Drive Today Showering/Bathing: May Shower (May take a bath) Notify Provider of: Fever, Increased Pain, Swelling and Redness, Nausea and/or Vomiting - Discharge Plan Home Medications: Home Meds Pnv No.95/Ferrous Fum/Folic AC [ Vitamins Tablet] 1 tab PO DAILY [History] Albuterol [Proair HFA] 2 puff INH Q4HR PRN 10/14/19 [History] Docusate Sodium [Colace] 100 mg PO ASDIRECTED PRN 10/14/19 [History] Montelukast [Singulair] 10 mg PO DAILY 10/14/19 [History] Acetaminophen [Tylenol] 650 mg PO Q4H PRN tablet 10/16/19 [Rx] Ibuprofen [Motrin] 600 mg PO Q4H PRN tablet 10/16/19 [Rx] Referrals: Dennis Leslie MD [Primary Care Provider] - (The patient is to call the clinic for a telehealth appointment to be done in 2 weeks.) - Discharge Summary/Plan Comment DC Time >30 min.: No Discharge Summary/Plan Comment: Discharge instructions: 1. Discharge home 2. Diet, activity and follow-up discussed with patient. Recommend nursing diet with increased calories and calcium. 3. Precautions given concern increased pain, bleeding, temperature, signs/ symptoms of DVT/PE. 4. Medications per home medication was printed, discussed with and given to the patient. 5. The patient is to call for a telehealth appointment which should occur in 2 weeks. Diagnosis: Term -delivered Condition: Good - Patient Data Vitals - Most Recent: Last Vital Signs Temp 36.7 C 10/16/19 03:45 Pulse 72 10/16/19 03:45 Resp 14 10/16/19 03:45 BP 106/64 10/16/19 03:45 Pulse Ox 99 10/16/19 03:45 Weight - Most Recent: 102.512 kg Med Orders - Current: Current Medications Acetaminophen (Tylenol) 650 mg PO Q4H PRN PRN Reason: mild pain or fever Last Admin: 10/15/19 19:12 Dose: 650 mg Benzocaine/Menthol (Dermoplast Pain Relief [place]) 0 gm TOP ASDIRECTED PRN PRN Reason: Perineal Comfort Measure Docusate Sodium (Colace) 100 mg PO BID PRN PRN Reason: Constipation Ibuprofen (Motrin) 600 mg PO Q4H PRN PRN Reason: Mild pain or fever Last Admin: 10/16/19 03:45 Dose: 600 mg Prenat Multivit/[place]/Iron/Folic Ac ( Plus Iron) 1 each PO DAILY [facility] Last Admin: 10/15/19 13:42 Dose: 1 each Ermelinda Ramesh (Tucks) 1 pad TOP ASDIRECTED PRN PRN Reason: Perineal Comfort Measure Last Admin: 10/15/19 03:42 Dose: 1 can Discontinued Medications Albuterol (Proventil Hfa) gm INH Q4HR PRN PRN Reason: Other Diphenhydramine HCl (Benadryl) 25 mg IVPUSH Q6H PRN PRN Reason: pruritis Last Admin: 10/14/19 21:01 Dose: 25 mg Ephedrine Sulfate (Ephedrine Sulfate) 5 mg IVPUSH ASDIRECTED PRN PRN Reason: Hypotension Fentanyl (Sublimaze) 100 mcg EPIDUR Q3H PRN PRN Reason: Pain Last Admin: 10/14/19 16:17 Dose: 100 mcg Fentanyl/Bupivacaine HCl (Fentanyl/Bupivacaine/Ns 2 Mcg-0.125% 100 Ml) 100 ml EPIDUR ASDIRECTED PRN PRN Reason: Pain Last Admin: 10/14/19 23:55 Dose: 100 ml Lactated Ringer's (Ringers, Lactated) 1,000 mls @ 100 mls/hr IV ASDIRECTED SARATH Last Admin: 10/14/19 23:56 Dose: 100 mls/hr Oxytocin/Lactated Ringer's (Pitocin In Lr 10 Units/1,000 Ml) 10 unit in 1,000 mls @ 12 mls/hr IV TITRATE SARATH; Protocol Last Titration: 10/14/19 22:00 Dose: 12 munits/min, 72 mls/hr Oxytocin/Lactated Ringer's (Pitocin In Lr 10 Units/1,000 Ml) 10 unit in 1,000 mls @ 3,000 mls/hr IV ASDIRECTED SARATH; Protocol Last Admin: 10/15/19 01:52 Dose: 500 munits/min, 3,000 mls/hr Montelukast Sodium (Singulair) 10 mg PO DAILY SARATH Nalbuphine HCl (Nubain) 10 mg IVPUSH Q2H PRN PRN Reason: Pain Ondansetron HCl (Zofran) 4 mg IVPUSH Q4H PRN PRN Reason: Nausea/Vomiting Sodium Chloride (Saline Flush) 10 ml FLUSH ASDIRECTED PRN PRN Reason: Keep Vein Open
[2019-10-16 08:31] VITALS: BP 116/46; PULSE 65
[2019-10-16] MEDS: Prenatal Multivitamin with Calcium/Folic Acid/Iron Tab PO SCH (11:08)
== END 2019-10-16 10:40 | disposition home or self-care (01) | DRG 807 ==
LOC: JD.OB 01:27 → OBSVTOIN 10-15 01:27 → JD.OB 10-15 01:28
PROVIDERS: ADMIT Obstetrics & Gynecology; ATTEND Obstetrics & Gynecology
PROC: 10E0XZZ Delivery of Products of Conception, External Approach (ICD-10-PCS; principal; 2019-10-15)
PROC: 10907ZC Drainage of Amniotic Fluid, Therapeutic from Products of Conception, Via Natural or Artificial Opening (ICD-10-PCS; 2019-10-15)
PROC: 3E033VJ Introduction of Other Hormone into Peripheral Vein, Percutaneous Approach (ICD-10-PCS; 2019-10-15)
PROC: 10H07YZ Insertion of Other Device into Products of Conception, Via Natural or Artificial Opening (ICD-10-PCS; 2019-10-15)
PROC: 3E0R3BZ Introduction of Anesthetic Agent into Spinal Canal, Percutaneous Approach (ICD-10-PCS; 2019-10-15)
DX: O99.52 Diseases of the respiratory system complicating childbirth (principal); Z37.0 Single live birth; Z3A.39 39 weeks gestation of pregnancy; Z88.1 Allergy status to other antibiotic agents; Z88.0 Allergy status to penicillin; Z91.018 Allergy to other foods; J45.909 Unspecified asthma, uncomplicated
CPT/HCPCS: 36415; 51702; 59025; 59409; 85025; 86592; A9270-GY; J1200; J2590; J3010; J7120